=== PATIENT | male | born 1995 | race African-American/Black ===

== ENCOUNTER 2020-06-14 09:06 | Emergency (ER) | payer SELFPAY ==
[~2020-06-14] VITALS: Ht 175.3 cm; Wt 80.7 kg
--- NOTE | 2020-06-14 09:06 | NUR ---
Patient BIBA BLS, transferred to bed 8. RN evaluating patient at bedside.
[2020-06-14 09:13] VITALS: BP 115/80
--- NOTE | 2020-06-14 09:21 | NUR ---
25 Y/O MALE BIBA C/O GENERALIZED WEAKNESS, PT STATES HE WAS RELEASED FROM [facility] EARLIER TODAY. PT STATES "I JUST DONT FEEL RIGHT", PT STATES HE WAS TESTED FOR COVID AT [facility] BUT DOES NOT KNOW THE RESULTS. GCS:15. DENIES ANY SOB, COUGH, N/V/D. DENIES ANY PAIN AT THIS TIME. AMBULATORY WITH STEADY GAIT. DENIES ANY DRUGS OR ALCOHOL. DENIES PMH NKA
[2020-06-14 10:00] VITALS: BP 115/80
--- NOTE | 2020-06-14 10:01 | NUR ---
Patient discharged with v/s stable. Written and verbal after care instructions given and explained. Patient alert, oriented and verbalized understanding of instructions. Ambulatory with steady gait. All questions addressed prior to discharge. ID band removed. Patient advised to follow up with PMD. Opportunity to ask questions provided and answered. PT GIVEN BUS PASS AND RESOURCES FOR MENTAL HEALTH CLINICS
== END 2020-06-14 10:01 | disposition home or self-care (01) ==
LOC: MED 09:06
DX: F12.10 Cannabis abuse, uncomplicated (principal); R53.1 Weakness; F17.210 Nicotine dependence, cigarettes, uncomplicated; Z71.6 Tobacco abuse counseling
CPT/HCPCS: 99283